=== PATIENT | female | born 2000 | race Caucasian/White ===

== ENCOUNTER 2020-05-16 00:22 | Emergency (ER) | payer OTHER ==
--- NOTE | 2020-05-16 00:51 | ED Physician Documentation ---
PD HPI FEMALE - Stated complaint Stated Complaint: F - Chief complaint Chief Complaint: General - History obtained from History obtained from: Patient - History of Present Illness Timing - onset: Today (tonight) Timing - details: Abrupt onset Pain level max: 0 Pain level max: 0 Associated symptoms: Vaginal bleeding. 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 [place]. Patient says her blood type is A negative and father of this is O positive (he is in ED room with patient and confirms this) Review of Systems Constitutional: denies: Fever Cardiac: reports: Reviewed and negative Respiratory: reports: Reviewed and negative GI: denies: Abdominal Pain, Nausea, Vomiting, Constipation, Diarrhea : reports: Vaginal bleeding (spotting), Now EGA (7 weeks). denies: Dysuria, Hematuria PD PAST MEDICAL HISTORY - Past Medical History Past Medical History: No - Present Medications Home Medications: Ambulatory Orders Medication Instructions Recorded Confirmed Clindamycin HCl [Clindamycin 300MG 300 mg PO Q8HR 7 Days #21 capsule 03/24/20 CAP] Hydrocodone/Acetaminophen [[place] 1 each PO Q8HR PRN #10 tablet 03/24/20 5-325 Tablet] [place] Carbonate 300 mg PO 03/24/20 - Allergies Allergies/Adverse Reactions: Allergies Allergy/AdvReac Type Severity Reaction Status Date / Time amoxicillin AdvReac Hives Verified 03/24/20 21:25 - Living Situation Living Situation: reports: With spouse/s.o. Living Arrangement: reports: At home PD ED PE NORMAL - Vitals Vital signs reviewed: Yes - General General: Alert and oriented X 3, No acute distress, Well developed/nourished - Cardiac Cardiac: RRR, No murmur - Respiratory Respiratory: No respiratory distress, Clear bilaterally - Abdomen Abdomen: Soft, Non tender - Back Back: No CVA TTP - Derm Derm: Normal color, Warm and dry Results - Vitals Vitals: Vital Signs - 24 hr 05/16/20 05/16/20 00:27 03:15 Temperature 37.7 C H Heart Rate 75 70 Respiratory 20 16 Rate Blood Pressure 114/86 H 116/78 O2 Saturation 100 99 Oxygen O2 Source Room air - Labs Labs: Laboratory Tests 05/16/20 00:39 Urine Color YELLOW Urine Clarity CLEAR Urine pH 7.5 Ur Specific [place] 1.015 Urine Protein NEGATIVE Urine Glucose (UA) NEGATIVE Urine Ketones NEGATIVE Urine Occult Blood TRACE-LYSE Urine Nitrite NEGATIVE Urine Bilirubin NEGATIVE Urine Urobilinogen 0.2 (NORMAL) Ur Leukocyte Esterase NEGATIVE Ur Microscopic Review NOT INDICATED Urine Culture Comments NOT INDICATED - Rads (name of study) pelvic US Radiology: Prelim report reviewed, See rad report PD MEDICAL DECISION MAKING - ED course Complexity details: reviewed results, re-evaluated patient, considered differential, d/w patient ED course: reviewed results of US with patient. Given that (by patient and spouse's report) she is rh negative and father of thi s is rh positive, she is given a dose of IM rhogam prior to d/c. She had no vaginal bleeding/spotting during ED stay. Departure - Departure Disposition: 01 Home, Self Care Clinical Impression: Vaginal bleeding in Condition: Good Instructions: Rh Negative, ED Miscarriage Poss Discharge Date/Time: 05/16/20 03:15
[2020-05-16 01:12] LABS: BILIRUBIN,URINE NEGATIVE (NEGATIVE); CLARITY,URINE CLEAR (CLEAR); GLUCOSE, URINE (UA) NEGATIVE (NEGATIVE); KETONES,URINE (UA) NEGATIVE (NEGATIVE); LEUKOCYTE ESTERASE, URINE NEGATIVE (NEGATIVE); NITRITE,URINE NEGATIVE (NEGATIVE); OCCULT BLOOD,URINE TRACE-LYSE (NEGATIVE); PH,URINE 7.5 PH (5.0-7.5); PROTEIN,URINE NEGATIVE (NEGATIVE); UROBILINOGEN,URINE 0.2 (NORMAL) E.U./dL (NORMAL)
[2020-05-16] MEDS ORDERED: RHO(D) IMMUNE GLOBULIN 300 MCG SYRINGE IM STA (02:45)
[2020-05-16] MEDS ORDERED: RHO(D) IMMUNE GLOBULIN 300 MCG SYRINGE ONE (03:05)
[2020-05-16 03:16] VITALS: BP 116/78
--- NOTE | 2020-05-16 08:24 | Ultrasound Report ---
PROCEDURE: OB First Trimester INDICATIONS: vag. bleeding 1st trimester OUTSIDE/PRIOR DATING DATA: Last menstrual period (LMP): 03/19/2020. LMP-based estimated date of delivery (FRIEDA): 12/24/2020. First dating scan (date and location): 05/16/2020. Estimated date of delivery (FRIEDA) from first dating scan: 21. TECHNIQUE: Real-time scanning was performed of the fetus and maternal pelvic organs, with image documentation. COMPARISON: None FINDINGS: Embryo: There is an intrauterine gestational sac seen, with a pole present, which measures 1.5 cm, which corresponds to an estimated gestational age of 8 weeks 0 days. cardiac activity is s een, with a measured heart rate of 171 bpm. A small amount of perigestational/subchorionic hemorrha ge can be seen, which measures 1.1 x 0.8 x 0.9 cm. A yolk sac is seen. Measurement variability in dating: +/- 4 weeks by LMP, +/- 7 days by mean sac diameter (use before 6 weeks gestation if crown-rump length not able to be measured), +/- 5 days by crown-rump length (6-12 weeks gestation). Maternal organs: Ovaries are unremarkable. Limited images through the kidneys demonstrate no hydron ephrosis. IMPRESSION: Single live intrauterine . A small amount of subchorionic hemorrhage can be seen. No significant discrepancy is found between the estimated gestational age based upon these images and the estimated gestational age based upon the given date of the last menstrual period. Note: No significant discrepancy from the preliminary report. Reviewed by: Jm Vance MD on 05/16/2020 7:22 AM [facility] Approved by: Jm Vance MD on 05/16/2020 7:22 AM [facility] Station ID: [id number]
--- NOTE | 2020-05-16 09:13 | Ultrasound Report ---
PROCEDURE: OB Transvaginal INDICATIONS: vaginal bleeding 1st trimester OUTSIDE/PRIOR DATING DATA: Last menstrual period (LMP): 03/19/2020. LMP-based estimated date of deldiaz carlie (FRIEDA): 12/24/2020. First dating scan (date and location): 05/16/2020. Estimated date of delivery (E DD) from first dating scan: 21. TECHNIQUE: Real-time scanning was performed of the fetus and materna l pelvic organs, with image documentation. COMPARISON: None FINDINGS: Embryo: There is an intraute rine gestational sac seen, with a pole present, which measures 1.5 cm, which corresponds to an estimated gestational age of 8 weeks 0 days. cardiac activity is seen, with a measured heart ra te of 171 bpm. A small amount of perigestational/subchorionic hemorrhage can be seen, which measures 1.1 x 0.8 x 0.9 cm. A yolk sac is seen. Measurement variability in dating: +/- 4 weeks by LMP, +/- 7 days by mean sac diameter (use before 6 weeks gestation if crown-rump length not able to be measured ), +/- 5 days by crown-rump length (6-12 weeks gestation). Maternal organs: Ovaries are unremarkable . Limited images through the kidneys demonstrate no hydronephrosis. IMPRESSION: Single live intra uterine . A small amount of subchorionic hemorrhage can be seen. No significant discrepanc y is found between the estimated gestational age based upon these images and the estimated gestationa l age based upon the given date of the last menstrual period. Note: No significant discrepancy from the preliminary report. Reviewed by: Jm Vance MD on 05/16/2020 8:11 AM [facility] Approved by: Jm Vance MD on 05/16/2020 8:11 AM [facility] Station ID: [id number]
== END 2020-05-16 03:15 | disposition home or self-care (01) ==
LOC: ED 00:22
DX: O20.9 Hemorrhage in early pregnancy, unspecified (principal); Z3A.01 Less than 8 weeks gestation of pregnancy
CPT/HCPCS: 76801; 76817; 81001; 81003; 87086; 96372; 99284

== ENCOUNTER 2020-06-04 18:48 | Emergency (ER) | payer OTHER ==
--- NOTE | 2020-06-04 19:23 | ED Physician Documentation ---
History of Present Illness - Stated complaint Stated Complaint: VOMITING,DIARRHEA - Chief complaint Chief Complaint: Abd Pain - History obtained from History obtained from: Patient - Additonal information Additional information: 19 y/o f at 11 weeks w hyperemesis. Review of Systems Constitutional: reports: Reviewed and negative Eyes: reports: Reviewed and negative Ears: reports: Reviewed and negative Nose: reports: Reviewed and negative Throat: reports: Reviewed and negative Cardiac: reports: Reviewed and negative Respiratory: reports: Reviewed and negative GI: reports: Vomiting : reports: Reviewed and negative Skin: reports: Reviewed and negative Musculoskeletal: reports: Reviewed and negative Neurologic: reports: Reviewed and negative Psychiatric: reports: Reviewed and negative Endocrine: reports: Reviewed and negative Immunocompromised: reports: Reviewed and negative PD PAST MEDICAL HISTORY - Present Medications Home Medications: Ambulatory Orders Medication Instructions Recorded Confirmed Clindamycin HCl [Clindamycin 300MG 300 mg PO Q8HR 7 Days #21 capsule 03/24/20 CAP] Hydrocodone/Acetaminophen [[place] 1 each PO Q8HR PRN #10 tablet 03/24/20 5-325 Tablet] [place] Carbonate 300 mg PO 03/24/20 Cephalexin [Keflex] 500 mg PO BID #6 capsule 06/04/20 Doxylamine/Pyridoxine HCl 1 each PO BID PRN #7 tablet. 06/04/20 [Cathi Moody 10-10 mg Tablet] - Allergies Allergies/Adverse Reactions: Allergies Allergy/AdvReac Type Severity Reaction Status Date / Time amoxicillin AdvReac Hives Verified 06/04/20 19:01 PD ED PE NORMAL - Vitals Vital signs reviewed: Yes - General General: Alert and oriented X 3, No acute distress - HEENT HEENT: PERRL - Neck Neck: Supple, no meningeal sign - Cardiac Cardiac: RRR, No murmur - Respiratory Respiratory: Clear bilaterally - Abdomen Abdomen: Normal bowel sounds, Soft, Non tender, Non distended - Derm Derm: Warm and dry - Extremities Extremities: No deformity - Neuro Neuro: Alert and oriented X 3 - Psych Psych: Normal mood, Normal affect Results - Vitals Vitals: Vital Signs - 24 hr 06/04/20 06/04/20 18:58 21:44 Temperature 36.6 C Heart Rate 81 86 Respiratory 17 18 Rate Blood Pressure 92/66 126/67 O2 Saturation 98 98 Oxygen O2 Source Room air - Labs Labs: Laboratory Tests 06/04/20 06/04/20 06/04/20 19:23 19:47 19:47 WBC 14.6 H RBC 4.54 Hgb 14.1 Hct 39.1 MCV 86.1 MCH 31.1 H MCHC 36.1 H RDW 11.9 L Plt Count 165 MPV 9.4 Neut # (Auto) 11.4 H Lymph # (Auto) 2.1 [place] # (Auto) 0.8 Eos # (Auto) 0.1 Baso # (Auto) 0.0 Absolute Nucleated RBC 0.00 Nucleated RBC % 0.0 Sodium 136 Potassium 3.5 Chloride 103 Carbon Dioxide 23 Anion Gap 10.0 BUN 6 Creatinine 0.5 Estimated GFR (MDRD) 157 Glucose 94 Calcium 9.3 Total Bilirubin 0.9 AST 19 ALT 29 Alkaline Phosphatase 57 Total Creatine Kinase 59 Total Protein 7.3 Albumin 4.0 Globulin 3.3 Albumin/Globulin Ratio 1.2 Lipase 24 Urine Color YELLOW Urine Clarity HAZY Urine pH 7.0 Ur Specific [place] 1.015 Urine Protein NEGATIVE Urine Glucose (UA) NEGATIVE Urine Ketones NEGATIVE Urine Occult Blood NEGATIVE Urine Nitrite NEGATIVE Urine Bilirubin NEGATIVE Urine Urobilinogen 0.2 (NORMAL) Ur Leukocyte Esterase SMALL H Urine RBC None Seen Urine WBC 4-5 Ur Squamous Epith Cells MANY Squamous H Urine Bacteria Few Ur Microscopic Review INDICATED Urine Culture Comments NOT INDICATED PD MEDICAL DECISION MAKING - ED course Complexity details: re-evaluated patient (resolved.), considered differential (hyperemesis, asymptomatic bacteruria) Departure - Departure Disposition: 01 Home, Self Care Clinical Impression: Hyperemesis gravidarum, Asymptomatic bacteriuria during in first trimester Condition: Stable Instructions: Hyperemesis Follow-Up: DANA HULL MD [Primary Care Provider] - Tomorrow Prescriptions: Doxylamine/Pyridoxine HCl [Cathi Moody 10-10 mg Tablet] 1 each PO BID PRN #7 tablet. PRN Reason: Nausea / Vomiting Cephalexin [Keflex] 500 mg PO BID #6 capsule Comments: follow up with your OB provider tomorrow. your urinalysis shows asyptomatic bacteriuria. It is recommended that you take keflex 500 mg by mouth two times daily for 3 days. You are also being given a prescription for diclegis to use as needed for nausea/vomiting in . Discharge Date/Time: 06/04/20 21:48
[2020-06-04] MEDS ORDERED: ONDANSETRON 4 MG/2 ML VIAL IVP STA (19:39)
[2020-06-04] MEDS ORDERED: SODIUM CHLORIDE 0.9% 1,000 ML IV STA ×2 (19:39→21:06)
[2020-06-04 19:59] LABS: BASOPHILS % (AUTO) 0.3 %; EOSINOPHILS # (AUTO) 0.1 10^3/uL (0.0-0.7); EOSINOPHILS % (AUTO) 0.8 %; HGB - HEMOGLOBIN 14.1 g/dL (12.0-16.0); LYMPHOCYTES # (AUTO) 2.1 10^3/uL (1.5-3.5); LYMPHOCYTES % (AUTO) 14.7 %; MEAN CORPUSCULAR HEMOGLOBIN 31.1 pg (27.0-31.0); MEAN CORPUSCULAR HGB CONC 36.1 g/dL (32.0-36.0); MEAN CORPUSCULAR VOLUME 86.1 fL (81.0-99.0); MEAN PLATELET VOLUME 9.4 fL (7.9-10.8); MONOCYTES # (AUTO) 0.8 10^3/uL (0.0-1.0); MONOCYTES % (AUTO) 5.2 %; NEUTROPHILS # (AUTO) 11.4 10^3/uL (1.5-6.6); NEUTROPHILS % (AUTO) 78.6 %; PLT - PLATELET COUNT 165 10^3/uL (130-450); RED BLOOD COUNT 4.54 10^6/uL (4.20-5.40); RED CELL DISTRIBUTION WIDTH 11.9 % (12.0-15.0); WHITE BLOOD COUNT 14.6 x10^3/uL (4.8-10.8)
[2020-06-04 20:06] LABS: ALBUMIN/GLOBULIN RATIO 1.2 (1.0-2.2); BILIRUBIN,TOTAL 0.9 mg/dL (0.2-1.0); CALCIUM 9.3 mg/dL (8.5-10.3); CREATININE 0.5 mg/dL (0.4-1.0); TOTAL PROTEIN 7.3 g/dL (6.7-8.2)
[2020-06-04 20:15] LABS: BILIRUBIN,URINE NEGATIVE (NEGATIVE); GLUCOSE, URINE (UA) NEGATIVE (NEGATIVE); KETONES,URINE (UA) NEGATIVE (NEGATIVE); LEUKOCYTE ESTERASE, URINE SMALL (NEGATIVE); NITRITE,URINE NEGATIVE (NEGATIVE); OCCULT BLOOD,URINE NEGATIVE (NEGATIVE); PROTEIN,URINE NEGATIVE (NEGATIVE); UROBILINOGEN,URINE 0.2 (NORMAL) E.U./dL (NORMAL)
[2020-06-04 20:16] LABS: CLARITY,URINE HAZY (CLEAR)
[2020-06-04 20:22] LABS: BACTERIA,URINE Few /HPF (None Seen); RBC,URINE None Seen /HPF (0-5); SQUAMOUS EPITHELIAL CELL,UR MANY Squamous (<= Few)
[2020-06-04] MEDS ORDERED: PROMETHAZINE INJ 25 MG in SODIUM CHLORIDE 0.9% 50 ML IV STA (21:05)
[2020-06-04] MEDS ORDERED: PROMETHAZINE 25 MG/1 ML VIAL ONE (21:18)
[2020-06-04 21:45] VITALS: BP 126/67
--- NOTE | 2020-06-05 12:43 | ED Physician Documentation ---
ED Addendum - Addendum Addendum: 06/05/20 12:42 Took call from pharmacy concerned with amox allergy. Wolfgang to macrobid 100 PO BID x5d.
== END 2020-06-04 21:48 | disposition home or self-care (01) ==
LOC: ED 18:48
DX: O21.0 Mild hyperemesis gravidarum (principal); O99.891 Other specified diseases and conditions complicating pregnancy; R82.71 Bacteriuria; Z3A.11 11 weeks gestation of pregnancy
CPT/HCPCS: 36415; 80053; 81001; 82550; 83690; 85025; 99283; 99284; J7040; 81003; 87086

== ENCOUNTER 2020-07-13 11:14 | Emergency (ER) | payer OTHER ==
[2020-07-13 11:48] VITALS: BP 134/68
== END 2020-07-13 12:04 | disposition left against medical advice (07) ==
LOC: ED 11:14
DX: Z53.21 Procedure and treatment not carried out due to patient leaving prior to being seen by health care provider (principal)

== ENCOUNTER 2020-10-02 11:50 | Outpatient (CLI) | payer SELFPAY | END 2020-10-02 11:51 | disposition home or self-care (01) | LOC: LAB 11:50 | DX: Z01.89 Encounter for other specified special examinations (principal) | CPT/HCPCS: 36415 ==

== ENCOUNTER 2020-10-10 08:05 | Outpatient (CLI) | payer OTHER | END 2020-10-10 08:06 | disposition critical access hospital (66) | LOC: EMS 08:05 | PROVIDERS: ATTEND Emergency Medicine | DX: O99.891 Other specified diseases and conditions complicating pregnancy (principal); R51.9 Headache, unspecified; M54.2 Cervicalgia; M54.5 Low back pain; Z3A.28 28 weeks gestation of pregnancy | CPT/HCPCS: A0425; A0429 ==

== ENCOUNTER 2020-10-10 08:29 | Emergency (ER) | payer OTHER ==
[2020-10-10] MEDS ORDERED: ONDANSETRON ODT 4 MG TABLET TL STA (08:44)
[2020-10-10] MEDS ORDERED: KETOROLAC 30 MG/ML VIAL IM STA (08:44)
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
[2020-10-10 10:34] VITALS: BP 126/81
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
== END 2020-10-10 10:37 | disposition home or self-care (01) ==
LOC: EDUNIT# → ED 08:29
DX: O9A.213 Injury, poisoning and certain other consequences of external causes complicating pregnancy, third trimester (principal); S00.03XA Contusion of scalp, initial encounter; S16.1XXA Strain of muscle, fascia and tendon at neck level, initial encounter; S39.012A Strain of muscle, fascia and tendon of lower back, initial encounter; V47.5XXA Car driver injured in collision with fixed or stationary object in traffic accident, initial encounter; Y93.89 Activity, other specified; Y92.410 Unspecified street and highway as the place of occurrence of the external cause; Z3A.28 28 weeks gestation of pregnancy
CPT/HCPCS: 36415; 81599; 86850; 86870; 86900; 86901; 86920; 86922; 96372; 99284

== ENCOUNTER 2020-10-10 10:46 | Observation (INO) | payer OTHER ==
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
[2020-10-10] MEDS ORDERED: miSOPROStoL 200 MCG TABLET BC PRN (14:56)
[2020-10-10] MEDS ORDERED: SODIUM CHLORIDE FLUSH 0.9% 10 ML SYRINGE IVP PRN (14:56)
[2020-10-10] MEDS ORDERED: CARBOPROST TROMETHAMINE 250 MCG/ML AMP IM PRN (14:56)
[2020-10-10] MEDS ORDERED: ONDANSETRON 4 MG/2 ML VIAL IVP PRN (14:56)
[2020-10-10] MEDS ORDERED: LIDOCAINE-MPF 1% 30 ML VIAL ID PRN (14:56)
[2020-10-10] MEDS ORDERED: METHYLERGONOVINE 0.2 MG/ML VIAL IM PRN (14:56)
[2020-10-10] MEDS ORDERED: TRANEXAMIC ACID IN NACL 1,000 MG/100 ML BAG IV PRN (14:56)
[2020-10-10] MEDS ORDERED: OXYTOCIN 10 UNIT/ML VIAL IM PRN (14:56)
[2020-10-10] MEDS ORDERED: OXYTOCIN/SODIUM CHLORIDE 500 ML IV PRN (14:56)
[2020-10-10] MEDS ORDERED: CYCLOBENZAPRINE 10 MG TABLET PO PRN (15:01)
[2020-10-10] MEDS ORDERED: ACETAMINOPHEN 500 MG TABLET PO PRN (15:02)
[2020-10-10] MEDS ORDERED: FLU VACC QS2020-21(6MOS UP)/PF 60 MCG/0.5 ML SYRINGE IM ONE (16:04)
[2020-10-10] MEDS ORDERED: TETANUS/DIPHTHERIA/PERTUSSIS 0.5 ML SYRINGE IM ONE (16:04)
[2020-10-10] MEDS ORDERED: hydrOXYzine PAMOATE 25 MG CAPSULE PO PRN (16:47)
[2020-10-10] MEDS ORDERED: SODIUM CHLORIDE FLUSH 0.9% 10 ML SYRINGE IVP SCH (17:00)
[2020-10-10] MEDS ORDERED: FLUoxetine 10 MG CAPSULE PO SCH (20:00)
[2020-10-11 08:33] VITALS: BP 128/70
[2020-10-11] MEDS ORDERED: FLUoxetine 10 MG CAPSULE PO SCH (09:00)
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
== END 2020-10-11 08:40 | disposition home or self-care (01) ==
LOC: WFO 10:46 → FBP 10:56 → WFO 14:56 → FBP 14:56
PROVIDERS: ADMIT Obstetrics & Gynecology; ATTEND Obstetrics & Gynecology
DX: O9A.213 Injury, poisoning and certain other consequences of external causes complicating pregnancy, third trimester (principal); S09.90XA Unspecified injury of head, initial encounter; S39.012A Strain of muscle, fascia and tendon of lower back, initial encounter; V47.5XXA Car driver injured in collision with fixed or stationary object in traffic accident, initial encounter; Y92.410 Unspecified street and highway as the place of occurrence of the external cause; R10.32 Left lower quadrant pain; Z3A.29 29 weeks gestation of pregnancy; O99.343 Other mental disorders complicating pregnancy, third trimester; F41.9 Anxiety disorder, unspecified; F32.9 Major depressive disorder, single episode, unspecified; S00.03XA Contusion of scalp, initial encounter; S16.1XXA Strain of muscle, fascia and tendon at neck level, initial encounter; Y93.89 Activity, other specified
CPT/HCPCS: 82951; 82952; 90715; 96374; 99214; A9270; G0378; 90686

== ENCOUNTER 2020-10-26 19:17 | Outpatient (CLI) | payer OTHER ==
[2020-10-26 19:32] VITALS: BP 117/73
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
== END 2020-10-26 20:44 | disposition home or self-care (01) ==
LOC: WFO 19:17 → FBP 19:19 → WFO 20:44
PROVIDERS: ATTEND Obstetrics & Gynecology
DX: O36.8130 Decreased fetal movements, third trimester, not applicable or unspecified (principal); Z3A.31 31 weeks gestation of pregnancy; O99.891 Other specified diseases and conditions complicating pregnancy; M54.9 Dorsalgia, unspecified
CPT/HCPCS: 99213

== ENCOUNTER 2021-07-16 17:17 | Emergency (ER) | payer OTHER ==
[2021-07-16 17:56] LABS: BASOPHILS % (AUTO) 0.4 %; EOSINOPHILS # (AUTO) 0.1 10^3/uL (0.0-0.7); EOSINOPHILS % (AUTO) 0.7 %; HCT - HEMATOCRIT 43.4 % (37.0-47.0); HGB - HEMOGLOBIN 14.7 g/dL (12.0-16.0); LYMPHOCYTES # (AUTO) 2.9 10^3/uL (1.5-3.5); LYMPHOCYTES % (AUTO) 29.2 %; MEAN CORPUSCULAR HEMOGLOBIN 29.4 pg (27.0-31.0); MEAN CORPUSCULAR HGB CONC 33.9 g/dL (32.0-36.0); MEAN CORPUSCULAR VOLUME 86.8 fL (81.0-99.0); MEAN PLATELET VOLUME 9.5 fL (7.9-10.8); MONOCYTES # (AUTO) 0.6 10^3/uL (0.0-1.0); MONOCYTES % (AUTO) 6.3 %; NEUTROPHILS # (AUTO) 6.2 10^3/uL (1.5-6.6); NEUTROPHILS % (AUTO) 63.1 %; PLT - PLATELET COUNT 289 10^3/uL (130-450); RED CELL DISTRIBUTION WIDTH 11.7 % (12.0-15.0); WHITE BLOOD COUNT 9.9 x10^3/uL (4.8-10.8)
[2021-07-16 18:02] LABS: BILIRUBIN,URINE NEGATIVE (NEGATIVE); GLUCOSE, URINE (UA) NEGATIVE (NEGATIVE); KETONES,URINE (UA) NEGATIVE (NEGATIVE); LEUKOCYTE ESTERASE, URINE NEGATIVE (NEGATIVE); NITRITE,URINE NEGATIVE (NEGATIVE); OCCULT BLOOD,URINE NEGATIVE (NEGATIVE); PROTEIN,URINE NEGATIVE (NEGATIVE); UROBILINOGEN,URINE 0.2 (NORMAL) E.U./dL (NORMAL)
[2021-07-16 18:03] LABS: CLARITY,URINE CLEAR (CLEAR)
[2021-07-16 18:04] LABS: HCG UR QUAL NEGATIVE
[2021-07-16 18:09] LABS: BILIRUBIN,TOTAL 0.7 mg/dL (0.2-1.0); CALCIUM 9.7 mg/dL (8.5-10.3); CREATININE 0.6 mg/dL (0.4-1.0); POTASSIUM 4.1 mmol/L (3.5-5.0)
[2021-07-16] MEDS ORDERED: IOVERSOL 320 100 ML VIAL IVP ONE ×2 (21:12→21:58)
[2021-07-16] MEDS ORDERED: HYDROmorphone 1 MG/ML CARPUJECT IVP STA (21:25)
--- NOTE | 2021-07-16 22:16 | CT Report ---
PROCEDURE: Abdomen/Pelvis W INDICATIONS: BLQ abd pain CONTRAST: IV CONTRAST: Optiray 320 ml: 100 PO CONTRAST: *NO PO CONTRAST TECHNIQUE: After the administration of intravenous contrast, 5 mm thick sections acquired from the diaphragms to the symphysis. 5 mm thick coronal and sagittal reformats were acquired. For radiation dose reducti on, the following was used: automated exposure control, adjustment of mA and/or kV according to jose ent size. COMPARISON: None. FINDINGS: Image quality: Excellent. ABDOMEN: Lung bases: Lung bases are clear. Heart size is normal. Solid organs: Liver and spleen are normal in size and enhancement. Gallbladder is unremarkable Williams iary system is non dilated. Pancreas enhances normally. No adrenal nodules. Kidneys demonstrate no rmal size and enhancement, without hydronephrosis. Peritoneum and bowel: Bowel loops demonstrate normal wall thickness and caliber. No free fluid or a ir. Question epiploic appendigitis in the fat in relative proximity to the proximal sigmoid. Nodes and vessels: No retroperitoneal or mesenteric adenopathy by size criteria. Aorta and inferior vena cava are normal in size. Miscellaneous: No ventral hernias. PELVIS: Genitourinary: Bladder wall thickness is normal. Miscellaneous: No inguinal hernias or adenopathy. Bones: No suspicious bony lesions. No vertebral body compression fractures. IMPRESSION: 1. Question epiploic appendigitis in the left lower quadrant. 2. Otherwise unremarkable study. Reviewed by: Allan Tuttle MD on 07/16/2021 10:15 PM PST Approved by: Allan Tuttle MD on 07/16/2021 10:15 PM PST Station ID: [id number]
--- NOTE | 2021-07-16 22:34 | ED Physician Documentation ---
PD HPI ABD PAIN - Stated complaint Stated Complaint: ABD PX - Chief complaint Chief Complaint: Abd Pain - History obtained from History obtained from: Patient - History of Present Illness Timing - onset: How many days ago (3) Timing - duration: Days (3) Timing - details: Gradual onset Pain level max: 7 Pain level now: 7 Quality: Aching, Pain Worsened by: Moving, Palpation Associated symptoms: No: Fever, Nausea, Vomiting, Hematemesis, Diarrhea, Constipation, Near syncope / syncope Similar symptoms before: Has not had sx before - Additional information Additional information: Patient is a 20-year-old female who presents to the emergency department with left and right lower quadrant abdominal pain for the past 3 days. Gradually worsening. Described as aching pain. Nothing seems to make it better. Worse with movement and palpation. No fever. No nausea. No vomiting patient. No urinary symptoms. Has not had similar symptoms previously. LMP was 20 days ago. Denies any possibility of . Review of Systems Constitutional: denies: Fever, Chills Respiratory: denies: Cough GI: denies: Nausea, Vomiting, Diarrhea : reports: Other (No vaginal discharge. No urinary symptoms. No changes in sexual partners). denies: Dysuria, Frequency, Hesitancy, Discharge, Now EGA Skin: denies: Rash Musculoskeletal: denies: Neck pain, Back pain Neurologic: denies: Headache PD PAST MEDICAL HISTORY - Past Medical History Past Medical History: No Psych: Depression, Anxiety - Past Surgical History Past Surgical History: No - Present Medications Home Medications: Ambulatory Orders Medication Instructions Recorded Confirmed Clindamycin HCl [Clindamycin 300MG 300 mg PO Q8HR 7 Days #21 capsule 03/24/20 CAP] Hydrocodone/Acetaminophen [[place] 1 each PO Q8HR PRN #10 tablet 03/24/20 5-325 Tablet] [place] Carbonate 300 mg PO 03/24/20 Doxylamine/Pyridoxine HCl 1 each PO BID PRN #7 tablet. 06/04/20 [Cathi Moody 10-10 mg Tablet] cephALEXin [Keflex] 500 mg PO BID #6 capsule 06/04/20 Ondansetron Odt [Zofran] 4 mg TL Q6H PRN #10 tablet 07/16/21 Oxycodone HCl/Acetaminophen 1 - 2 each PO Q6H PRN #14 tablet 07/16/21 [Percocet 5-325 mg Tablet] - Allergies Allergies/Adverse Reactions: Allergies Allergy/AdvReac Type Severity Reaction Status Date / Time amoxicillin AdvReac Hives Verified 07/16/21 17:35 - Social History Does the pt smoke?: No Smoking Status: Never smoker Does the pt drink ETOH?: No Does the pt have substance abuse?: No - POLST Patient has POLST: No PD ED PE NORMAL - Vitals Vital signs reviewed: Yes - General General: Alert and oriented X 3, No acute distress - HEENT HEENT: Moist mucous membranes - Neck Neck: Supple, no meningeal sign - Cardiac Cardiac: RRR - Respiratory Respiratory: No respiratory distress, Clear bilaterally - Abdomen Abdomen: Soft, Non distended, Other (Tender to palpation bilateral lower quadra nts, left greater than right. No peritoneal signs.) - Female Female : Pt declined - Derm Derm: Warm and dry - Extremities Extremities: No edema - Neuro Neuro: Alert and oriented X 3 - Psych Psych: Normal mood, Normal affect Results - Vitals Vitals: Vital Signs - 24 hr 07/16/21 07/16/21 07/16/21 17:31 19:23 21:16 Temperature 36.8 C 36.9 C Heart Rate 84 75 79 Respiratory 18 18 16 Rate Blood Pressure 133/102 H 140/81 H 122/87 H O2 Saturation 97 99 98 07/16/21 23:00 Temperature 36.8 C Heart Rate 77 Respiratory 16 Rate Blood Pressure 126/74 O2 Saturation 98 Oxygen O2 Source Room air - Labs Labs: Laboratory Tests 07/16/21 07/16/21 07/16/21 17:48 17:49 17:49 WBC 9.9 RBC 5.00 Hgb 14.7 Hct 43.4 MCV 86.8 MCH 29.4 MCHC 33.9 RDW 11.7 L Plt Count 289 MPV 9.5 Neut # (Auto) 6.2 Lymph # (Auto) 2.9 [place] # (Auto) 0.6 Eos # (Auto) 0.1 Baso # (Auto) 0.0 Absolute Nucleated RBC 0.00 Nucleated RBC % 0.0 Sodium 138 Potassium 4.1 Chloride 103 Carbon Dioxide 26 Anion Gap 9.0 BUN 15 Creatinine 0.6 Estimated GFR (MDRD) 126 Glucose 83 Calcium 9.7 Total Bilirubin 0.7 AST 21 ALT 45 Alkaline Phosphatase 73 Total Protein 8.0 Albumin 4.0 Globulin 4.0 Albumin/Globulin Ratio 1.0 Lipase 26 Urine Color YELLOW Urine Clarity CLEAR Urine pH 6.0 Ur Specific [place] 1.025 Urine Protein NEGATIVE Urine Glucose (UA) NEGATIVE Urine Ketones NEGATIVE Urine Occult Blood NEGATIVE Urine Nitrite NEGATIVE Urine Bilirubin NEGATIVE Urine Urobilinogen 0.2 (NORMAL) Ur Leukocyte Esterase NEGATIVE Ur Microscopic Review NOT INDICATED Urine Culture Comments NOT INDICATED Urine HCG, Qual NEGATIVE - Rads (name of study) CT abdomen pelvis Radiology: Final report received, EMP read contemporaneously, See rad report (Question epiploic appendigitis in the left lower quadrant. o/w unremarkable) Pelvic ultrasound Radiology: Final report received, EMP read contemporaneously, See rad report (Unremarkable pelvic ultrasound. ) PD MEDICAL DECISION MAKING - ED course Complexity details: reviewed results, re-evaluated patient, considered differential, d/w patient ED course: No acute findings on ultrasound. CT abdomen pelvis appears consistent with epiploic appendagitis. Pain well controlled. Will prescribe pain medication for home. Patient is well-appearing, nontoxic. Afebrile. Tolerating p.o. without difficulty. I am prescribing a short course of short-acting opioid pain medication for this patient. I have reviewed the patients CLOSING MANAGER and no concerning findings were noted. I have discussed that the opioids are for short term therapy only, and will not be refilled from the ED. patient counseled regarding signs and symptoms for which I believe and urgent re-evaluation would be necessary. Patient with good understanding of and agreement to plan and is comfortable going home at this time This document was made in part using voice recognition software. While efforts are made to proofread this document, sound alike and grammatical errors may occur. Departure - Departure Disposition: 01 Home, Self Care Clinical Impression: Epiploic appendagitis Condition: Good Instructions: ED Abdominal Pain Female Non-Specific Abdominal Pain Follow-Up: DANA HULL MD [Primary Care Provider] - Within 1 week Prescriptions: Oxycodone HCl/Acetaminophen [Percocet 5-325 mg Tablet] 1 - 2 each PO Q6H PRN #14 tablet PRN Reason: pain Ondansetron Odt [Zofran] 4 mg TL Q6H PRN #10 tablet PRN Reason: Nausea / Vomiting Comments: You appear to have epiploic appendagitis. This will resolve on its own but can cause pain for several days to weeks. Please return if you worsen. A prescription was sent to [facility] in [place]. I am prescribing a short course of narcotic pain medication for you. These are potentially dangerous and addictive medications that should be used carefully. These medications may constipate you. Take an [id number] stool softener (docusate) twice daily with plenty of water while taking these medications. If you go 24 hours without a bowel movement, take [id number] miralax, per package instructions. Do not drink or drive while taking these medications. If you received narcotic or sedating medications while in the emergency department, do not drive for 24 hours. Store this medication in a safe, secure place and out of reach of children. It is a violation of federal law to give or sell this medication to another person or to use in a manner other than prescribed. The ED will not refill narcotic prescriptions, including prescriptions lost or stolen. To dispose of unwanted medications: 1. [facility] at [address] in [place] has a medication drop box. They accept prescription medications (in pill form) Monday through Monday 9:00 a.m. to 5:00 p.m. 2. The [facility] [employer] accepts prescription medications (in pill form only) for disposal year round. Call for more informati on. 3. Contact the [facility] for the next [facility] sponsored prescription drug collection event. , [phone], or [phone];
[2021-07-16] MEDS ORDERED: oxyCODONE 5 MG TABLET PO STA (23:01)
--- NOTE | 2021-07-16 23:05 | Ultrasound Report ---
PROCEDURE: Pelvic w/Transvag+Doppler Comp INDICATIONS: pelvic pain, B TECHNIQUE: Real-time scanning was performed of the pelvic organs, with image documentation. Additional endovagi nal scanning was necessary due to incomplete visualization of the adnexal and endometrial structures by transabdominal scanning. COMPARISON: None. FINDINGS: No pathologic free abdominal or pelvic fluid. Uterus: Uterus is normal in size at 8.1 x 3.1 x 4.5 cm. The endometrium measures 2.0 mm in combined thickness. Ovaries: Right ovary measures 2.8 x 1.6 x 2.1 cm with a volume of 4.9 mL. Left ovary measures 1.3 x 0.8 x 0.9 cm with a volume of 0.5 mL. There is bilateral intraovarian flow by duplex. IMPRESSION: Unremarkable pelvic ultrasound. Reviewed by: Allan Tuttle MD on 07/16/2021 11:03 PM PST Approved by: Allan Tuttle MD on 07/16/2021 11:03 PM [facility] Station ID: [id number]
[2021-07-16 23:10] VITALS: BP 126/74
[2021-07-16] MEDS ORDERED: ONDANSETRON 4 MG/2 ML VIAL IVP STA (23:26)
== END 2021-07-16 23:38 | disposition home or self-care (01) ==
LOC: ED 17:17
DX: K63.89 Other specified diseases of intestine (principal)
CPT/HCPCS: 36415; 74177; 76830; 76856; 80053; 81003; 81025; 83690; 85025; 93975; 96374; 96375; 99284; A9270; J1170; Q9967; 81001; 87086